=== PATIENT | female | born 1945 | race Caucasian/White ===

== ENCOUNTER 2025-01-27 21:38 | Inpatient (IN) | payer BC, OTHER ==
[~2025-01-27] VITALS: Ht 153.9 cm; Wt 72.2 kg
--- NOTE | 2025-01-27 21:53 | ECG ---
[facility] Test Date: 2025-01-27 Test Time: 21:41:42 Pat Name: DAIN GALLARDO Department: ED Room: 0231T Gender: F Twisting Operator: ronda : 1945 Requested By: SALLY ALMEIDA Order Number: [id number] Reading MD: Dima Santo Measurements Intervals Rover Rate: 89 P: 41 PA: 198 QRS: 43 QRSD: 92 T: 56 QT: 360 QTc: 439 Interpretive Statements Sinus rhythm Electronically Signed On 01-31-2025 15:03:17 PDT by Dima Santo Please click the below link to view image of tracing.
--- NOTE | 2025-01-27 22:00 | ED.PDOC ---
HPI (NEURO) HPI Comments 79 y/o F, with a history of AL, PTCA, HLD, and HTN, is [id number] relatives for c/c of AMS, with associated confusion, weakness, delayed speech, right sided facial droop, and headache. Patient is reported to have sudden, unprovoked, and atraumatic onset of symptoms between 1741-4329, this evening. Patient is reported to be A&Ox4 at baseline. No history of stroke in the past. Patient was also noted to have been found hypertensive at home at 190's systolically. No further acute symptoms reported. Chief Complaint: General Weakness Time Seen by MD: 21:45 Reviewed Notes: Nurses Notes, Medications, Allergies Information Source: Patient Mode of Arrival: Wheelchair Past Medical History PAST MEDICAL HISTORY: High Lipids, HTN, AL Surgical History: PTCA Social History Smoker: Non-Smoker Alcohol: Denies ETOH Use Drugs: Denies Drug Use Lives In: Home All Other Systems: Reviewed and Negative (Comprehensive systems review obtained and negative except for what is stated in the HPI.) Physical Exam General Appearance: No Apparent Distress, Normal, Other (elderly appearing ) HEENT: Normal ENT Inspection, Pharynx Normal, TMs Normal Neck: Full Range of Motion, Non-Tender, Normal, Normal Inspection Respiratory: Chest Non-Tender, Lungs Clear, No Accessory Muscle Use, No Respiratory Distress, Normal Breath Sounds Cardiovascular: No Edema, No JVD, No Murmur, No Gallop, Normal Peripheral Pulses, Regular Rate/Rhythm Breast Exam: Deferred Gastrointestinal: No Organomegaly, Non Tender, No Pulsatile Mass, Normal Bowel Sounds, Soft Genitalia: Deferred Pelvic: Deferred Rectal: Deferred Extremities: No calf tenderness, Normal capillary refill, Normal inspection, Normal range of motion, Non-tender, No pedal edema Musculoskeletal : Apperance: Normal Neurologic: Alert, quilt maker II-XII nml as Tested, No Motor Deficits, Normal Affect, Normal Mood, No Sensory Deficits Cerebellar Function: Normal Reflexes: Normal Skin: Dry, Normal Color, Warm Lymphatic: No Adenopathy EKG EKG : Pulse Rate (adult): 89 [place]: Normal Cardiac Rhythm: NSR Block: None Hypertrophy: None ST: Normal Was a procedure done? Was a procedure done?: No Differential Diagnosis (SZ) Seizure: N/A CVA: CVA, Drug Overdose, Electrolyte Imbalance, Encephalopathy, Hypoglycemia, Hypoxemia, TIA General Weakness: Anemia, CVA, Dehydration, Dysrhythmia, Electrolyte imbalance, Encephalopathy, Hypoglycemia, Myocardial infarction, Pulmonary embolus, TIA X-Ray, Labs, Meds, VS Vital Signs Date Time Temp Pulse Resp B/P (MAP) Pulse Ox O2 Delivery O2 Flow Rate FiO2 01/27/25 22:00 89 01/27/25 21:43 100.4 91 20 165/92 92 100.4 01/27/25 21:41 89 Lab Test 01/28/25 00:22 01/27/25 22:05 01/27/25 21:53 Range/Units Troponin I High Sensitivity Pending 5 </=34 ng/L White Blood Count 7.3 4.4-10.8 10^3/uL Red Blood Count 4.50 4.0-5.20 10^6/uL Hemoglobin 14.6 12.2-16.2 g/dL Hematocrit 41.6 36.0-46.0 % Mean Corpuscular Volume 92.6 80.0-100.0 fL Mean Corpuscular Hemoglobin 32.5 H 28.0-32.0 pg Mean Corpuscular Hemoglobin Concent 35.1 32.0-36.0 g/dL Red Cell Distribution Width 14.4 H 11.8-14.3 % Platelet Count 205 140-450 10^3/uL Mean Platelet Volume 6.8 L 6.9-10.8 fL Neutrophils (%) (Auto) 87.5 H 37.0-80.0 % Lymphocytes (%) (Auto) 5.6 L 10.0-50.0 % Monocytes (%) (Auto) 6.4 0.0-12.0 % Eosinophils (%) (Auto) 0.2 0.0-7.0 % Basophils (%) (Auto) 0.3 0.0-2.0 % Neutrophils # (Auto) 6.4 1.6-8.6 10 ^3/uL Lymphocytes # (Auto) 0.4 0.4-5.4 10 ^3/uL Monocytes # (Auto) 0.5 0-1.3 10 ^3/uL Eosinophils # (Auto) 0 0-0.8 10 ^3/uL Basophils # (Auto) 0 0-0.2 10 ^3/uL Nucleated Red Blood Cells 0.0 % Sodium Level 141 136-145 mmol/L Potassium Level 3.9 3.5-5.1 mmol/L Chloride Level 103 98-107 mmol/L Carbon Dioxide Level 29 20-31 mmol/L Anion Gap 9 5-15 Blood Urea Nitrogen 13 9-23 mg/dL Creatinine 0.96 0.550-1.02 mg/dL Glomerular Filtration Rate Calc 61 >90 mL/min BUN/Creatinine Ratio 13.5 10.0-20.0 Serum Glucose 123 H 74-106 mg/dL Lactic Acid Level 1.2 0.4-2.0 mmol/L Calcium Level 9.5 8.7-10.4 mg/dL Magnesium Level 2.2 1.6-2.6 mg/dL Total Bilirubin 0.7 0.2-1.0 mg/dL Aspartate Amino Transferase (AST) 17 13-40 U/L Alanine Aminotransferase (ALT) 17 7-40 U/L Alkaline Phosphatase 152 H 46-116 U/L Total Protein 8.0 5.7-8.2 g/dL Albumin 4.9 H 3.2-4.8 g/dL Urine Color Colorless Yellow Urine Clarity Turbid H Clear Urine pH 7.5 5.0-9.0 Urine Specific [place] 1.020 1.001-1.035 Urine Protein Trace H Negative Urine Ketones Trace Negative Urine Blood Negative Negative /uL Urine Nitrite Negative Negative Urine Bilirubin Negative Negative Urine Urobilinogen Normal Negative mg/dL Urine Leukocyte Esterase Negative Negative /uL Urine RBC <1 0 - 4 /hpf Urine Microscopic WBC < 1 0-5 /HPF Urine Squamous Epithelial Cells Few <5 /hpf Urine Amorphous Crystals Few None Seen /hpf Urine Bacteria None seen None Seen /hpf Urine Mucus Few None Seen Urine Glucose Normal Normal mg/dL [place] [address] Ph: [phone] DIAGNOSTIC IMAGING Diagnostic Imaging Report : [id number] Signed PATIENT: DAIN GALLARDO ACCT: [id number] UNIT: [id number] : 1945 LOC: ER ROOM / BED: / AGE / SEX: 79 / F ADM STATUS: REG ER SERVICE 45 ORDERING PHYSICIAN: SALLY ALMEIDA MD PROCEDURE(s): CXRP - CHEST PORTABLE REASON: SOB ORDER NUMBER(s): [id number], ACCESSION NUMBER(s): [id number] CHEST RADIOGRAPH Indication: SOB Technique: Single frontal view of the chest was obtained COMPARISON: None FINDINGS: Lines and Tubes: None Lungs: Mild subsegmental atelectasis at left lung base. Otherwise unremarkable. Pleura: No pleural effusion or pneumothorax. Cardiomediastinal contours: Unremarkable IMPRESSION: Mild subsegmental atelectasis at left lung base. Otherwise unremarkable study. ATED BY: DIPESH JC MD DICTATED DATE/TIME: 01/27/252306 SIGNED BY: DIPESH JC MD SIGNED DATE/TIME: 01/27/252306 CC: [place] [address] Ph: [phone] DIAGNOSTIC IMAGING Diagnostic Imaging Report : [id number] Signed PATIENT: DAIN GALLARDO ACCT: [id number] UNIT: [id number] : 1945 LOC: ER ROOM / BED: / AGE / SEX: 79 / F ADM STATUS: REG ER SERVICE 45 ORDERING PHYSICIAN: SALLY ALMEIDA MD PROCEDURE(s): HWOCT - HEAD WITHOUT CONTRAST REASON: ALOC ORDER NUMBER(s): [id number], ACCESSION NUMBER(s): [id number] CT BRAIN WITHOUT CONTRAST HISTORY: ALOC TECHNIQUE: Axial scans were obtained from the skull base through the vertex without contrast. Sagittal and coronal reformats were generated. One or more of the following radiation dose reduction techniques were used for this examination: automated exposure control, adjustment of the mA and/or kV according to patient size, use of iterative reconstruction technique. COMPARISON: None FINDINGS: Motion artifact limits evaluation. As visualized, no definite acute intracranial hemorrhage or evidence of large vessel territorial infarction is identified at this time. Chronic appearing bilateral lacunar infarcts are noted. No midline shift. The basilar cisterns are patent. Patchy left ethmoidal sinus mucosal thickening. The mastoid air cells are cl ear. No definite calvarial fracture identified given the degree of motion. IMPRESSION: Motion limited evaluation. No definite acute intracranial findings as visualized. Chronic appearing bilateral basal ganglia lacunar infarcts. If there is persistent clinical concern, short-term interval follow-up CT or MRI may be obtained to further evaluate. ATED BY: JOSE DE LA CRUZ MD DICTATED DATE/TIME: 01/27/252304 SIGNED BY: JOSE DE LA CRUZ MD SIGNED DATE/TIME: 01/27/252304 CC: Time of 1ST Reevaluation: 22:15 Reevaluation 1ST: Unchanged Patient Education/Counseling: Other (patient is altered ) Family Education/Counseling: Diagnosis, Treatment Departure 1 Departure Time of Disposition: 00:49 Impression: Primary Impression: Metabolic encephalopathy Disposition: ADMITTED INPATIENT Admit to: Med Surg Condition: Guarded Discharged With: Self Comments 79-year-old female with fairly acute onset confusion and some mumbling speech. CT of the head shows no acute pathology. Lab work reviewed and does not show any major red flags. Possible TIA. Possible dehydration or infectious process. Plan will be to admit the patient for supportive care and further workup, possible MRI tomorrow Critical Care Note Critical Care Time?: Yes (35 min-critical care time only) Critical care comment: Total critical care time: Approximately 36 minutes Due to a high probability of clinically significant, life threatening deterioration, the patient required my highest level of preparedness to intervene emergently and I personally spent this critical care time directly and personally managing the patient. This critical care time included obtaining a history; examining the patient; pulse oximetry; ordering and review of studies; arranging urgent treatment with development of a management plan; evaluation of patient's response to treatment; frequent reassessment; and, discussions with other providers. This critical care time was performed to assess and manage the high probability of imminent, life-threatening deterioration that could result in multi-organ failure. It was exclusive of separately billable procedures and treating other patients. Stability Stability form required: No Heart Score Heart Score: Heart Score Response (Comments) Value History N/A 0 EKG N/A 0 Age N/A 0 Risk Factors N/A 0 Troponin N/A 0 Total 0 I personally scribed for SALLY ALMEIDA MD ([email or web address]) on 01/27/25 at 22:00. Electronically submitted by Malcolm Jackson ([email or web address]). I personally scribed for SALLY ALMEIDA MD ([email or web address]) on 01/27/25 at 23:36. Electronically submitted by Malcolm Jackson ([email or web address]). SALLY ALMEIDA MD Jan 27, 2025 22:00
[2025-01-27 22:11] LABS: Urine Amorphous Crystal FEW /hpf (None Seen); Urine Protein, UAD TRACE (Negative)
[2025-01-27 22:20] LABS: Hematocrit 41.6 % (36.0-46.0); Hemoglobin 14.6 g/dL (12.2-16.2); Mean Corpuscular Hemoglobin 32.5 pg (28.0-32.0); Mean Corpuscular Volume 92.6 fL (80.0-100.0); Nucleated Red Blood Cells % 0.0 %
[2025-01-27 22:38] LABS: Alanine Aminotransferase 17 U/L (7-40); Anion Gap 9 (5-15); BUN/Creatinine Ratio 13.5 (10.0-20.0); Bilirubin, Total 0.7 mg/dL (0.2-1.0); Blood Urea Nitrogen 13 mg/dL (9-23); Calcium 9.5 mg/dL (8.7-10.4); Carbon Dioxide 29 mmol/L (20-31); Chloride 103 mmol/L (98-107); Magnesium 2.2 mg/dL (1.6-2.6); Potassium 3.9 mmol/L (3.5-5.1); Sodium 141 mmol/L (136-145); Total Protein 8.0 g/dL (5.7-8.2)
[2025-01-27 22:44] LABS: Albumin 4.9 g/dL (3.2-4.8); Alkaline Phosphatase 152 U/L (46-116); Glucose 123 mg/dL (74-106)
--- NOTE | 2025-01-27 23:08 | DVH ---
CT BRAIN WITHOUT CONTRAST HISTORY: ALOC TECHNIQUE: Axial scans were obtained from the skull base through the vertex without contrast. Sagitta l and coronal reformats were generated. One or more of the following radiation dose reduction techniq ues were used for this examination: automated exposure control, adjustment of the mA and/or kV accord ing to patient size, use of iterative reconstruction technique. COMPARISON: None FINDINGS: Motion artifact limits evaluation. As visualized, no definite acute intracranial hemorrhage or evidence of large vessel territorial infa rction is identified at this time. Chronic appearing bilateral lacunar infarcts are noted. No midline shift. The basilar cisterns are patent. Patchy left ethmoidal sinus mucosal thickening. The mastoid air cells are clear. No definite calvari al fracture identified given the degree of motion. IMPRESSION: Motion limited evaluation. No definite acute intracranial findings as visualized. Chronic appearing bilateral basal ganglia lacunar infarcts. If there is persistent clinical concern, short-term interval follow-up CT or MRI may be obtained to f chivo evaluate.
--- NOTE | 2025-01-27 23:09 | DVH ---
CHEST RADIOGRAPH Indication: SOB Technique: Single frontal view of the chest was obtained COMPARISON: None FINDINGS: Lines and Tubes: None Lungs: Mild subsegmental atelectasis at left lung base. Otherwise unremarkable. Pleura: No pleural effusion or pneumothorax. Cardiomediastinal contours: Unremarkable IMPRESSION: Mild subsegmental atelectasis at left lung base. Otherwise unremarkable study.
[2025-01-28] MEDS: SODIUM CHLORIDE 0.9% 500 ML IV ONE (02:15)
[2025-01-28] MEDS: IOHEXOL 350 MG/ML 100ML IJ ONE (02:21)
--- NOTE | 2025-01-28 03:04 | DVH ---
INDICATION: ALOC , slurred speech COMPARISON: CT HEAD WITHOUT CONTRAST on DOS: 01/27/25 TECHNIQUE: CTA head without and with intravenous contrast. CTA neck with intravenous contrast. 3D image postprocessing was performed on a dedicated workstation and images were used for interpretation and reporting. Radiation Dose Information: CT Dose: CTDI volume is 22.3 mGy. Dose-length product is 749.56 mGy*cm FINDINGS: CT head: There is no evidence of acute intracranial hemorrhage, extra-axial collection, mass effect, midline s hift, herniation or hydrocephalus. The ventricles, sulci and cisterns are age appropriate. The crawford -white differentiation is intact. Left ethmoid mucosal sinus disease. The remaining visualized paran daisy sinuses and mastoid air cells are clear. The surrounding soft tissues and osseous structures a re unremarkable. CTA head: There is normal enhancement of the visualized distal internal carotid, anterior and middle cerebral a rteries. Atherosclerotic vascular calcifications of the cavernous portions of the bilateral internal carotid arteries without evidence of associated hemodynamically significant stenosis. There is a norm al anterior communicating artery complex. There are bilateral posterior communicating arteries. The vertebral, basilar, cerebellar and posterior cerebral arteries are within normal limits. The early parenchymal enhancement is grossly unremarkable. The visualized intracranial venous structures are g rossly unremarkable. CTA neck: The visualized thoracic aortic arch and proximal great vessels are unremarkable. Atherosclerotic vasc ular calcifications are noted. The left common, internal and external carotid arteries are within normal limits. The right common, internal and external carotid arteries are within normal limits. Atherosclerotic vascular calcifications are present within the bilateral carotid bulbs without eviden ce of resultant hemodynamically significant stenosis. The cervical segments of the right and left vertebral arteries are within normal limits. The limited visualized lung apices are clear. The surrounding soft tissues and osseous structures ar e otherwise unremarkable. IMPRESSION: 1. No evidence of acute intracranial hemorrhage, mass effect or hydrocephalus. 2. No evidence of hemodynamically significant intracranial stenosis, proximal occlusion or aneurysm. 3. No evidence of hemodynamically significant cervical stenosis or dissection. 4. Atherosclerotic vascular disease. All CT scans at this medical facility are performed using dose modulation techniques as appropriate t o a performed exam including the following: Automated exposure control was utilized; adjustment of th e MA and/or KV according to patient size; and use of iterative reconstruction technique.
[2025-01-28] MEDS: GABAPENTIN 100 MG CAP PO ONE (03:09)
[2025-01-28] MEDS: carBAMazepine 200 MG TAB PO ONE (03:09)
[2025-01-28] MEDS: ATORVASTATIN 20 MG TAB PO ONE (03:10)
[2025-01-28] MEDS: LISINOPRIL 20 MG TAB PO ONE (03:10)
[2025-01-28] MEDS ORDERED: NITROGLYCERIN 0.4 MG SL TAB SL PRN (04:45)
[2025-01-28] MEDS ORDERED: DOCUSATE SOD 100 MG CAP PO PRN (04:45)
[2025-01-28] MEDS ORDERED: MORPHINE SULFATE INJ 2 MG/ml SYRG IV PRN (04:45)
[2025-01-28] MEDS ORDERED: ONDANSETRON HCL 4 MG/2 ML VIAL IV PRN (04:45)
[2025-01-28] MEDS ORDERED: hydrALAZINE HCL 20 MG/ML VL IV PRN (04:45)
--- NOTE | 2025-01-28 05:16 | DVHHP2 ---
LINDSAY LORENZO VOCAL TEACHER 01/28/25 0516: History of Present Illness Reason for Visit: AMS, slurred speech History of Present Illness 79-year-old female with past medical history of AK, PTCA, HLD, hypertension brought in by daughter with complaints of headache, confusion, generalized weakness, delayed speech, right-sided facial droop x1 day. Patient's daughter states symptoms started earlier when the patient was at [employer]aoism and was having difficulty standing up. Progressively worsened over the day. Patient was also noted to be hypertensive while at home. At her baseline patient is able to ambulate independently and speak clearly with no previous history of strokes. states that she sees neurologist Dr. 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 Patient was previously on Plavix for cardiac stent that was placed a year ago. Patient has stopped taking Plavix in October. During the emergency department evaluation CBC is unremarkable. CMP is unremarkable. UA is negative. CXR impression reads mild subsegmental atelectasis at the left lung base. Otherwise unremarkable study. Head CT without contrast impression reads motion limited evaluation. No definite acute intracranial findings as visualized. Chronic appearing bilateral basal ganglia lacunar infarcts. CT angio of the head and neck impression reads no evidence of acute intracranial hemorrhage, mass effect or hydrocephalus. No evidence of hemodynamically significant intracranial stenosis, proximal occlusion or aneurysm. No evidence of hemodynamically significant cervical stenosis or dissection. Atherosclerotic vascular disease. While in the emergency department patient is noted to to have low-grade temperature is 100.4. 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: Migraine Endocrine: Hypothyroidism Smoke: No ALCOHOL: none Drugs: None Lives: with Family Review of Systems Constitutional: Yes: Weakness, Malaise; No: Fever, Chills, Sweats, Other Eyes: No: Pain, Vision change, Conjunctivae inflammation, Eyelid inflammation, Other, Redness ENT: No: Ear pain, Ear discharge, Nose pain, Nose discharge, Nose congestion, Mouth pain, Mouth swelling, Throat pain, Throat swelling, Other Respiratory: No: Cough, Dry, Shortness of breath, SOB with excertion, Wheezing, Hemoptysis, Pleuritic Pain, Sputum, Wheezing, Other Cardiovascular: No: Chest Pain, Palpitations, Orthopnea, Paroxysmal Noc. Dyspnea, Edema, Lt Headedness, Other Gastrointestinal: No: Nausea, Vomiting, Abdominal Pain, Diarrhea, Constipation, Melena, Hematochezia, Other Genitourinary: No Dysuria, No Frequency, No Incontinence, No Hematuria, No Retention, No Other Musculoskeletal: No: other, neck pain, shoulder pain, arm pain, back pain, hand pain, leg pain, foot pain Skin: No: Rash, Lesions, Jaundice, Bruising, Other Neurological: Confusion, Other (Headaches) Allergies: Coded Allergies: NO KNOWN ALLERGIES (Unverified , 01/27/25) Medications Current Medications Medications Dose Ordered Sig/Jose Juan Route Start Time Stop Time Status Last Admin Dose Admin Docusate Sodium 100 mg BIDPRN PRN PO 01/28/25 04:45 UNV Acetaminophen 650 mg Q6HP PRN PO 01/28/25 04:45 UNV Ondansetron HCl 4 mg Q4HP PRN IV 01/28/25 04:45 UNV Enoxaparin Sodium 40 mg DAILY SC 01/28/25 10:00 UNV Nitroglycerin 0.4 mg Q5MINP PRN SL 01/28/25 04:45 UNV Morphine Sulfate 2 mg Q30M PRN IV 01/28/25 04:45 UNV Carbamazepine 200 mg BID PO 01/28/25 10:00 UNV Gabapentin 300 mg TID PO 01/28/25 06:00 UNV Aspirin 81 mg DAILY PO 01/28/25 10:00 UNV Atorvastatin Calcium 40 mg QPM PO 01/28/25 18:00 UNV Hydralazine HCl 10 mg Q4HPRN PRN IV 01/28/25 04:45 UNV Lisinopril 30 mg DAILY PO 01/28/25 10:00 UNV Levothyroxine Sodium 100 mcg DAILY PO 01/28/25 10:00 UNV Exam Vital Signs Vital Signs Date Time Temp Pulse Resp B/P (MAP) Pulse Ox O2 Delivery O2 Flow Rate FiO2 01/28/25 03:10 160/96 01/28/25 02:59 99.6 77 20 93 99.6 General Appearance: Alert, Oriented X3, mild distress HEENT: Atraumatic, PERRLA, EOMI Respiratory: Clear to auscultation, Normal air movement Cardiovascular: Regular rate, Normal S1, Normal S2 Abdominal: Normal bowel sounds, Soft, No tenderness Extremities: No clubbing, No cyanosis, No edema Skin: No breakdown Neuro: Other (Delayed speech with dysarthria. Bilateral upper and lower extremities equal strength) Psych/Mental Status: Mental status NL, Mood NL Labs/Xrays Labs Test 01/28/25 00:25 01/28/25 00:22 01/27/25 22:05 01/27/25 21:53 Range/Units Troponin I High Sensitivity 4 </=34 ng/L White Blood Count 7.3 4.4-10.8 10^3/uL Red Blood Count 4.50 4.0-5.20 10^6/uL Hemoglobin 14.6 12.2-16.2 g/dL Hematocrit 41.6 36.0-46.0 % Mean Corpuscular Volume 92.6 80.0-100.0 fL Mean Corpuscular Hemoglobin 32.5 H 28.0-32.0 pg Mean Corpuscular Hemoglobin Concent 35.1 32.0-36.0 g/dL Red Cell Distribution Width 14.4 H 11.8-14.3 % Platelet Count 205 140-450 10^3/uL Mean Platelet Volume 6.8 L 6.9-10.8 fL Neutrophils (%) (Auto) 87.5 H 37.0-80.0 % Lymphocytes (%) (Auto) 5.6 L 10.0-50.0 % Monocytes (%) (Auto) 6.4 0.0-12.0 % Eosinophils (%) (Auto) 0.2 0.0-7.0 % Basophils (%) (Auto) 0.3 0.0-2.0 % Neutrophils # (Auto) 6.4 1.6-8.6 10 ^3/uL Lymphocytes # (Auto) 0.4 0.4-5.4 10 ^3/uL Monocytes # (Auto) 0.5 0-1.3 10 ^3/uL Eosinophils # (Auto) 0 0-0.8 10 ^3/uL Basophils # (Auto) 0 0-0.2 10 ^3/uL Nucleated Red Blood Cells 0.0 % Sodium Level 141 136-145 mmol/L Potassium Level 3.9 3.5-5.1 mmol/L Chloride Level 103 98-107 mmol/L Carbon Dioxide Level 29 20-31 mmol/L Anion Gap 9 5-15 Blood Urea Nitrogen 13 9-23 mg/dL Creatinine 0.96 0.550-1.02 mg/dL Glomerular Filtration Rate Calc 61 >90 mL/min BUN/Creatinine Ratio 13.5 10.0-20.0 Serum Glucose 123 H 74-106 mg/dL Lactic Acid Level 1.2 0.4-2.0 mmol/L Calcium Level 9.5 8.7-10.4 mg/dL Magnesium Level 2.2 1.6-2.6 mg/dL Total Bilirubin 0.7 0.2-1.0 mg/dL Aspartate Amino Transferase (AST) 17 13-40 U/L Alanine Aminotransferase (ALT) 17 7-40 U/L Alkaline Phosphatase 152 H 46-116 U/L Total Protein 8.0 5.7-8.2 g/dL Albumin 4.9 H 3.2-4.8 g/dL Urine Color Colorless Yellow Urine Clarity Turbid H Clear Urine pH 7.5 5.0-9.0 Urine Specific [place] 1.020 1.001-1.035 Urine Protein Trace H Negative Urine Ketones Trace Negative Urine Blood Negative Negative /uL Urine Nitrite Negative Negative Urine Bilirubin Negative Negative Urine Urobilinogen Normal Negative mg/dL Urine Leukocyte Esterase Negative Negative /uL Urine RBC <1 0 - 4 /hpf Urine Microscopic WBC < 1 0-5 /HPF Urine Squamous Epithelial Cells Few <5 /hpf Urine Amorphous Crystals Few None Seen /hpf Urine Bacteria None seen None Seen /hpf Urine Mucus Few None Seen Urine Glucose Normal Normal mg/dL SEPSIS Sepsis Screen Date sepsis recognized/suspect: Jan 27, 2025 Time Sepsis recognized/suspect: 2140 Recent Procedure: No On Antibiotic Therapy: No Respiratory Rate >20: No Heart Rate >90: No Temp<36 C (96.8 F) or >38.3 C: No SBP <90 or MAP <65 mmHG: No New Acute Mental Status Change: No Is the patient on CPAP, BIPAP,: No Physician Orders Blood Culture (01/27/25 21:46) Chest Portable (01/27/25 21:46) Head Without Contrast (01/27/25 21:46) Straightcath If Unable To Void (01/27/25 21:49) Angio Head/Neck (01/28/25 02:11) Admit (01/28/25 04:45) Code Status (01/28/25 04:45) Vital Signs .PER UNIT PROTOCOL (01/28/25 04:45) Review Orders With Adm.Md (01/28/25 04:45) Encourage Activity As Tolerate (01/28/25 04:45) Consistent Carb(Ccho)Diabetes (01/28/25 Breakfast) Oxygen By Face Mask (01/28/25 04:45) Docusate Sodium Capsule (Colace Capsule) (01/28/25 04:45) Acetaminophen Tablet (Tylenol Tablet) (01/28/25 04:45) Notify Md Of Changes From Base (01/28/25 04:45) Advance Directive (01/28/25 04:45) Echo 2d Mode Cardiac Dop (01/28/25 04:45) Basic Metabolic Panel (01/28/25 05:00) Basic Metabolic Panel (01/29/25 05:00) Basic Metabolic Panel (01/30/25 05:00) Basic Metabolic Panel (01/31/25 05:00) Basic Metabolic Panel (02/01/25 05:00) Complete Blood Count (01/28/25 05:00) Complete Blood Count (01/29/25 05:00) Complete Blood Count (01/30/25 05:00) Complete Blood Count (01/31/25 05:00) Complete Blood Count (02/01/25 05:00) Blood Culture (01/28/25 04:45) Patient Condition (01/28/25 04:45) Allergies (01/28/25 04:45) Ondansetron Hcl (Zofran) (01/28/25 04:45) Enoxaparin Sodium (Lovenox) (01/28/25 10:00) Sequential Compression Device (01/28/25 ) Nitroglycerin Sublingual (Ntrostat Subli (01/28/25 04:45) Morphine Sulfate Injection (01/28/25 04:45) Stat Ekg For Chest Pain (01/28/25 04:45) Notify Md Of Changes From Base (01/28/25 04:45) Quality Control Tech Raw Materials For 24 Hours (01/28/25 04:45) Emergency Dysrhythmia Protocol (01/28/25 04:45) Rhythm Strips Once Every Shift (01/28/25 04:45) Oxygen By Nasal Cannula (01/28/25 04:45) * Cardiology Consult (01/28/25 04:45) Brain Head Wo Contrast (01/28/25 04:45) * Neurology Consult (01/28/25 04:45) Sod Chl 0.45% (Sodium Chloride 0.45% Via (01/28/25 04:45) Carbamazepine Tablet (Tegretol Tablet) (01/28/25 10:00) Gabapentin Capsule (Neurontin Capsule) (01/28/25 06:00) Thyroid Stimulating Hormone (01/28/25 04:45) Free T4 (Free Thyroxine) (01/28/25 04:45) Aspirin Tablet (01/28/25 10:00) Atorvastatin (Lipitor) (01/28/25 18:00) Rapid Influenza A&B (01/28/25 04:45) Dvh Inhouse Covid19 (01/28/25 04:45) Pt Request For Service (01/28/25 04:45) Hydralazine Injection (Apresoline Inject (01/28/25 04:45) Lisinopril Tablet (Zestril Tablet) (01/28/25 10:00) Levothyroxine Tablet (Synthroid Tablet) (01/28/25 10:00) Vital Signs Date Time Temp Pulse Resp B/P (MAP) Pulse Ox O2 Delivery O2 Flow Rate FiO2 01/28/25 03:10 160/96 01/28/25 02:59 99.6 77 20 160/96 (117) 93 99.6 01/27/25 22:00 89 01/27/25 21:43 100.4 91 20 165/92 92 100.4 01/27/25 21:41 89 Laboratory Tests Test 01/27/25 22:05 Lactic Acid Level 1.2 mmol/L (0.4-2.0) White Blood Count 7.3 10^3/uL (4.4-10.8) Medications Medications Dose Ordered Sig/Jose Juan Route Start Time Stop Time Status Last Admin Dose Admin Aspirin 81 mg ONCE ONCE PO 01/28/25 01:00 01/28/25 01:01 DC 01/28/25 03:09 81 MG Atorvastatin Calcium 40 mg ONCE ONCE PO 01/28/25 02:45 01/28/25 02:46 DC 01/28/25 03:10 40 MG Carbamazepine 200 mg ONCE ONCE PO 01/28/25 02:45 01/28/25 02:46 DC 01/28/25 03:09 200 MG Gabapentin 200 mg ONCE ONCE PO 01/28/25 02:45 01/28/25 02:46 DC 01/28/25 03:09 200 MG Lisinopril 40 mg ONCE ONCE PO 01/28/25 02:45 01/28/25 02:46 DC 01/28/25 03:10 40 MG Sodium Chloride 500 ml @ 500 mls/hr Q1H ONCE IV 01/28/25 02:15 01/28/25 03:14 DC 01/28/25 02:15 500 MLS/HR Assessment/Plan Assessment/Plan CVA R/O Dysarthria Hypertension Hx trigeminal neuralgia Hx PCI w stent Plan Admit telemetry Consult neurology. MRI brain. ASA, Statin.. physical therapy evaluation.. Allow for permissive. hypertension. Cardiology consult. Echocardiogram. As needed antihypertensive for optimal BP management Blood cultures pending. Influenza A&B; CV 19 pending. Continue home medication GI ppx Pepcid / dvt ppx lovenox Plan discussed with: Patient, Daughter My Orders Orders - LINDSAY LORENZO NP Procedure Category Date Status Time Admit ADMIT 01/28/25 Transmitted 04:45 Code Status CODE 01/28/25 Transmitted 04:45 Vital Signs [facility] 01/28/25 In Process 04:45 Review Orders With [facility] 01/28/25 In Process Adm. 04:45 Encourage Activity As [facility] 01/28/25 In Process Tolerate 04:45 Consistent DIET 01/28/25 Transmitted Carb(Ccho)Diabetes Breakfast Oxygen By Face Mask RT 01/28/25 Transmitted 04:45 Docusate Sodium [facility] 01/28/25 Logged Capsule (Colace 04:45 Acetaminophen Tablet PHA 01/28/25 Logged (Tylenol Tablet) 04:45 Notify Of Changes [facility] 01/28/25 In Process From Base 04:45 Advance Directive [facility] 01/28/25 In Process 04:45 Echo 2d Mode Cardiac US 01/28/25 Logged DOP 04:45 Basic Metabolic Panel LAB 01/28/25 Logged 05:00 Basic Metabolic Panel LAB 01/29/25 Verified 05:00 Basic Metabolic Panel LAB 01/30/25 Verified 05:00 Basic Metabolic Panel LAB 01/31/25 Verified 05:00 Basic Metabolic Panel LAB 02/01/25 Verified 05:00 Complete Blood Count LAB 01/28/25 Logged 05:00 Complete Blood Count LAB 01/29/25 Verified 05:00 Complete Blood Count LAB 01/30/25 Verified 05:00 Complete Blood Count LAB 01/31/25 Verified 05:00 Complete Blood Count LAB 02/01/25 Verified 05:00 Blood Culture [facility] 01/28/25 Logged 04:45 Patient Condition ORDERS 01/28/25 Transmitted 04:45 Allergies [facility] 01/28/25 In Process 04:45 Ondansetron Hcl [facility] 01/28/25 Logged (Zofran) 04:45 Enoxaparin Sodium [facility] 01/28/25 Logged (Lovenox) 10:00 Sequential TOREY 01/28/25 In Process Compression Device Nitroglycerin [facility] 01/28/25 Logged Sublingual (Ntrostat 04:45 Morphine Sulfate [facility] 01/28/25 Logged Injection 04:45 Stat Ekg For Chest [facility] 01/28/25 In Process Pain 04:45 Notify Md Of Changes [facility] 01/28/25 In Process From Base 04:45 Quality Control Tech Raw Materials For [facility] 01/28/25 In Process 24 Hours 04:45 Emergency Dysrhythmia [facility] 01/28/25 In Process Protocol 04:45 Rhythm Strips Once [facility] 01/28/25 In Process Every Shift 04:45 Oxygen By Nasal RT 01/28/25 Transmitted Cannula 04:45 * Cardiology Consult CONS 01/28/25 Transmitted 04:45 Brain Head Wo Contrast MRI 01/28/25 Logged 04:45 * Neurology Consult CONS 01/28/25 Transmitted 04:45 Sod Chl 0.45% (Sodium PHA 01/28/25 Logged Chloride 0.45% Via 04:45 Carbamazepine Tablet [facility] 01/28/25 Logged (Tegretol Tablet) 10:00 Gabapentin Capsule [facility] 01/28/25 Logged (Neurontin Capsule) 06:00 Thyroid Stimulating LAB 01/28/25 In Process Hormone 04:45 Free T4 (Free LAB 01/28/25 Logged Thyroxine) 04:45 Aspirin Tablet [facility] 01/28/25 Logged 10:00 Atorvastatin (Lipitor) [facility] 01/28/25 Logged 18:00 Rapid Influenza A&B LAB 01/28/25 Logged 04:45 Dvh Inhouse Covid19 [facility] 01/28/25 Logged 04:45 Pt Request For Service PT 01/28/25 Logged 04:45 Hydralazine Injection [facility] 01/28/25 Logged (Apresoline Inject 04:45 Lisinopril Tablet [facility] 01/28/25 Logged (Zestril Tablet) 10:00 Levothyroxine Tablet [facility] 01/28/25 Logged (Synthroid Tablet) 10:00 Date of Service: Jan 28, 2025 Billing Provider: EDEL CALVERT MD Common Visit Codes: NOT BILLABLE EDEL CALVERT MD 01/28/25 1737: Review of Systems Allergies: Coded Allergies: NO KNOWN ALLERGIES (Unverified , 01/27/25) LINDSAY LORENZO NP Jan 28, 2025 05:16 EDEL CALVERT MD Jan 28, 2025 17:37
[2025-01-28 05:57] LABS: Hematocrit 40.4 % (36.0-46.0); Hemoglobin 14.0 g/dL (12.2-16.2); Mean Corpuscular Hemoglobin 32.2 pg (28.0-32.0); Mean Corpuscular Volume 93.3 fL (80.0-100.0); Nucleated Red Blood Cells % 0.2 %
[2025-01-28] MEDS: GABAPENTIN 300 MG CAP PO SCH (06:00)
[2025-01-28 06:15] VITALS: BP 156/66; PULSE 72; RESP 16; O2SAT 91
[2025-01-28 06:48] LABS: Chloride 103 mmol/L (98-107); Potassium 4.1 mmol/L (3.5-5.1); Sodium 141 mmol/L (136-145)
[2025-01-28 06:49] LABS: Anion Gap 14 (5-15); Calcium 9.5 mg/dL (8.7-10.4); Carbon Dioxide 24 mmol/L (20-31)
[2025-01-28 06:54] LABS: BUN/Creatinine Ratio 14.4 (10.0-20.0); Blood Urea Nitrogen 13 mg/dL (9-23)
[2025-01-28 06:57] LABS: Glucose 122 mg/dL (74-106)
--- NOTE | 2025-01-28 08:47 | DVH ---
PROCEDURE: MRI BRAIN HEAD WO CONTRAST Indication: cva COMPARISON: 01/27/2025 TECHNIQUE: Multiplanar multisequence images of the brain are obtained. FINDINGS: There is no abnormal diffusion restriction. There are moderate periventricular and subcortical white matter T2 and FLAIR hyperintense changes. Old bilateral basal ganglia lacunar infarcts There is no in tracranial hemorrhage. No extra-axial fluid collection, mass effect or midline shift. The ventricles are midline and normal in size. The cisterns are patent. Normal intracranial flow voids are preserved . No abnormal susceptibility signal. Mastoids well pneumatized. Mucosal thickening ethmoids The visualized orbits are unremarkable. IMPRESSION: No acute cerebrovascular ischemia. Moderate chronic microvascular ischemic changes. Paranasal sinus disease.
[2025-01-28 08:55] LABS: COVID19 ANTIGEN SOFIA FIA POSITIVE (NEGATIVE)
[2025-01-28 08:58] VITALS: PULSE 61; RESP 15; O2SAT 94
[2025-01-28] MEDS: FAMOTIDINE (10MG/ML) 2ML VL IV SCH (09:40)
[2025-01-28] MEDS: LEVOTHYROXINE SODIUM 100 MCG TAB PO SCH (09:40)
[2025-01-28] MEDS: carBAMazepine 200 MG TAB PO SCH (09:40)
[2025-01-28] MEDS: ACETAMINOPHEN 325 MG TAB PO PRN (09:41)
[2025-01-28] MEDS: ENOXAPARIN SOD 40 MG/0.4 ML SYRINGE SC SCH (09:41)
[2025-01-28] MEDS: SOD CHL 0.45% 1,000 ML IV ONE (09:42)
[2025-01-28] MEDS: LISINOPRIL 20 MG TAB PO SCH (09:42)
[2025-01-28] MEDS: ATORVASTATIN 20 MG TAB PO SCH (17:03)
--- NOTE | 2025-01-28 18:52 | DVHSR ---
APPROVED REPORT EXAM: Two-dimensional and M-mode echocardiogram with Doppler and color Doppler. Blood Pressure: 159/76 mmHg INDICATION CVA/TIA: RISK FACTORS Height: 5'7", Weight: 159 DIMENSIONS LVDd4.9 (3.8-5.7cm)LA (2D)4.6 (1.9-4.0cm)Aortic Root3.0 (2.0-3.7cm) LVDs2.6 (2.5-4.0cm)LA (MM) (1.9-4.0cm)Aortic Cusp Exc2.1 (1.5-2.0cm) EF (%) 76.0 (55-70%)Rt. Atrium4.1 (1.9-4.0cm)Asc. Aorta cm IVSd1.2 (0.7-1.1cm)RV (D) (1.8-2.4cm) Mitral Valve MitralMitral Stenosis E wave0.73m/sMV Mean GR.mmHg A wave1.01m/sMV Peak GR.mmHg E/A ratio0.72D MVAcm2 DECEL [id number] 1/2 Timems Aortic Valve Aortic ValveAortic Stenosis V11.35m/[place] Mean GR.5mmHg V21.42m/[place] Peak GR.8mmHg LVOT Diameter2.2 (1.8-2.4cm)Doppler AVA3.61cm2 Pulmonic Valve V20.96m/s Tricuspid Valve TR Velocity2.47m/s [id number] Other Information Quality : Technically LimitedRhythm : Technically limited study due to body habitus. Conclusion Technically good study. Sinus rhythm. Difficult acoustic windows. Concentric LVH with biatrial enlargement. LV outflow tract enlargement. Mild aortic annular calcification. There was good excursion of the aortic leaflets. The pulmonic an d tricuspid appear to be structurally normal. Mild mitral annular calcification. Left ventricular systolic performance is preserved EF is 60% with normal RV function. Doppler reveals mild tricuspid regurgitation. There is impaired diastolic relaxation noted on inflow patterns. Small pericardial effusion not hemodynamically significant. No intracardiac masses thrombi or vegetations discernible.
[2025-01-28 20:01] VITALS: PULSE 83; RESP 15; O2SAT 93
[2025-01-29 06:52] LABS: Hematocrit 36.9 % (36.0-46.0); Hemoglobin 13.1 g/dL (12.2-16.2); Mean Corpuscular Hemoglobin 32.7 pg (28.0-32.0); Mean Corpuscular Volume 92.3 fL (80.0-100.0); Nucleated Red Blood Cells % 0.1 %
[2025-01-29 07:02] LABS: Anion Gap 9 (5-15); Carbon Dioxide 26 mmol/L (20-31); Chloride 103 mmol/L (98-107); Potassium 3.5 mmol/L (3.5-5.1); Sodium 138 mmol/L (136-145)
[2025-01-29 07:03] LABS: Calcium 8.8 mg/dL (8.7-10.4)
[2025-01-29 07:08] LABS: BUN/Creatinine Ratio 16.7 (10.0-20.0); Blood Urea Nitrogen 12 mg/dL (9-23); Glucose 104 mg/dL (74-106)
[2025-01-29 07:20] VITALS: PULSE 78; RESP 14; O2SAT 96
[2025-01-29 17:15] VITALS: BP 155/83; PULSE 80; RESP 12; TEMP 98.3; O2SAT 94
--- NOTE | 2025-01-29 18:09 | DVHDS2 ---
Discharge Summary Date of Admission Jan 28, 2025 at 04:45 Date of Discharge: Jan 29, 2025 Labs/Diagnostic Data: Laboratory Results Test 01/29/25 06:30 01/28/25 05:50 01/28/25 05:22 01/28/25 00:25 White Blood Count 5.2 10^3/uL (4.4-10.8) Red Blood Count 4.00 10^6/uL (4.0-5.20) Hemoglobin 13.1 g/dL (12.2-16.2) Hematocrit 36.9 % (36.0-46.0) Mean Corpuscular Volume 92.3 fL (80.0-100.0) Mean Corpuscular Hemoglobin 32.7 pg (28.0-32.0) Mean Corpuscular Hemoglobin Concent 35.5 g/dL (32.0-36.0) Red Cell Distribution Width 14.4 % (11.8-14.3) Platelet Count 174 10^3/uL (140-450) Mean Platelet Volume 7.0 fL (6.9-10.8) Neutrophils (%) (Auto) 78.8 % (37.0-80.0) Lymphocytes (%) (Auto) 9.5 % (10.0-50.0) Monocytes (%) (Auto) 11.3 % (0.0-12.0) Eosinophils (%) (Auto) 0.1 % (0.0-7.0) Basophils (%) (Auto) 0.3 % (0.0-2.0) Neutrophils # (Auto) 4.1 10 ^3/uL (1.6-8.6) Lymphocytes # (Auto) 0.5 10 ^3/uL (0.4-5.4) Monocytes # (Auto) 0.6 10 ^3/uL (0-1.3) Eosinophils # (Auto) 0 10 ^3/uL (0-0.8) Basophils # (Auto) 0 10 ^3/uL (0-0.2) Nucleated Red Blood Cells 0.1 % Sodium Level 138 mmol/L (136-145) Potassium Level 3.5 mmol/L (3.5-5.1) Chloride Level 103 mmol/L (98-107) Carbon Dioxide Level 26 mmol/L (20-31) Anion Gap 9 (5-15) Blood Urea Nitrogen 12 mg/dL (9-23) Creatinine 0.72 mg/dL (0.550-1.02) Glomerular Filtration Rate Calc 86 mL/min (>90) BUN/Creatinine Ratio 16.7 (10.0-20.0) Serum Glucose 104 mg/dL (74-106) Calcium Level 8.8 mg/dL (8.7-10.4) Influenza Type A Antigen Negative (Negative) Influenza Type B Antigen Negative (Negative) SARS-CoV-2 Antigen (Rapid) Positive (NEGATIVE) Free Thyroxine (T4) Calculated 1.21 ng/dL (0.89-1.76) Thyroid Stimulating Hormone (TSH) 0.87 uIU/mL (0.55-4.78) Test 01/28/25 00:22 01/27/25 22:05 01/27/25 21:53 Troponin I High Sensitivity 4 ng/L (</=34) Lactic Acid Level 1.2 mmol/L (0.4-2.0) Magnesium Level 2.2 mg/dL (1.6-2.6) Total Bilirubin 0.7 mg/dL (0.2-1.0) Aspartate Amino Transferase (AST) 17 U/L (13-40) Alanine Aminotransferase (ALT) 17 U/L (7-40) Alkaline Phosphatase 152 U/L (46-116) Total Protein 8.0 g/dL (5.7-8.2) Albumin 4.9 g/dL (3.2-4.8) Urine Color Colorless (Yellow) Urine Clarity Turbid (Clear) Urine pH 7.5 (5.0-9.0) Urine Specific [place] 1.020 (1.001-1.035) Urine Protein Trace (Negative) Urine Ketones Trace (Negative) Urine Blood Negative /uL (Negative) Urine Nitrite Negative (Negative) Urine Bilirubin Negative (Negative) Urine Urobilinogen Normal mg/dL (Negative) Urine Leukocyte Esterase Negative /uL (Negative) Urine RBC <1 /hpf (0 - 4) Urine Microscopic WBC < 1 /HPF (0-5) Urine Squamous Epithelial Cells Few /hpf (<5) Urine Amorphous Crystals Few /hpf (None Seen) Urine Bacteria None seen /hpf (None Seen) Urine Mucus Few (None Seen) Urine Glucose Normal mg/dL (Normal) Other Laboratory Tests 9/2/25 06:30 Brief Hx & Hospital Course: 79-year-old female with a known history of CAD status post PCI, hypertension, dyslipidemia initially presented to the hospital with generalized weakness and slurred speech eventually patient was admitted CT head was negative for DVT CT head and neck shows no large vessel occlusion. MRI brain shows no evidence of any acute infarct. Patient was found to have COVID-19 viral pneumonia but asymptomatic on room air. Patient and patient's daughter requested to go home I think patient is stable to be discharged. Please follow up with the PCP upon discharge. COVID-19 isolation for next 7-10 days. Condition at Discharge: Stable Final Diagnosis/Problems List 1. Generalized weakness with slurred speech ruled out acute CVA 2. Coronary artery disease status post PCI 3. Hypertension 4. Dyslipidemia 5. Acute viral pneumonia with a positive COVID-19 currently asymptomatic and on room air Discharge Disposition: Home SNF Discharge Will this Physician continue t: No Discharge Instruct/Medications Diet: Cardiac 2g Na,low cholest Activity: [id number] Follow Up/Referral: Follow up with the PCP in 1-2 weeks. Medications: Resume home medications. Discharge Statement: "Patient was advised to return to the ER or call 911 if any headaches, dizziness, shortness of breath, chest pain, abdominal pain, bleeding, fevers, or worsening of medical condition. Patient was counseled about treatment plan, medications, possible side effects, patientverbalized understanding. All questions were answered to the best of my ability. This discharge took greater then 30 minutes in planning, reviewing documentation, counseling the patient, and discussing with other team members." ASSESSMENT ASSESSMENT Assessment 1. Generalized weakness with slurred speech ruled out acute CVA 2. Coronary artery disease status post PCI 3. Hypertension 4. Dyslipidemia 5. Acute viral pneumonia with a positive COVID-19 currently asymptomatic and on room air Date of Service: Jan 29, 2025 Billing Provider: EDEL CALVERT MD Common Visit Codes: NOT BILLABLE EDEL CALVERT MD Jan 29, 2025 18:09
[2025-01-29 18:10] VITALS: PULSE 82; RESP 16; O2SAT 94
[2025-01-29] MEDS ORDERED: ATOR-507 PO (18:39)
[2025-01-29] MEDS ORDERED: LISI40TA16 PO (18:39)
[2025-01-29] MEDS ORDERED: ASPI-498 OR (18:39)
[2025-01-29] MEDS ORDERED: GABA-339 PO (18:39)
[2025-01-29] MEDS ORDERED: CARB200T PO (18:39)
[2025-01-29] MEDS ORDERED: GABA-1250 PO (18:39)
[2025-01-29] MEDS ORDERED: LEVO100T8 PO (18:39)
[2025-01-29 19:59] VITALS: BP 155/83; PULSE 82; RESP 16; TEMP 98.3; O2SAT 95
== END 2025-01-29 22:01 | disposition home or self-care (01) | DRG 177 ==
LOC: ER 21:38 → OVERFLOW 01-28 04:45 → TELE-EAST 01-29 17:58
PROVIDERS: ADMIT Nurse Practitioner Family; ATTEND Nurse Practitioner Family
DX: U07.1 COVID-19 (principal); G93.41 Metabolic encephalopathy; J12.82 Pneumonia due to coronavirus disease 2019; J98.11 Atelectasis; I10 Essential (primary) hypertension; E78.5 Hyperlipidemia, unspecified; I25.10 Atherosclerotic heart disease of native coronary artery without angina pectoris; E03.9 Hypothyroidism, unspecified; G43.909 Migraine, unspecified, not intractable, without status migrainosus; I25.2 Old myocardial infarction; Z95.5 Presence of coronary angioplasty implant and graft; Z78.9 Other specified health status
CPT/HCPCS: 36415; 70450; 70496; 70498; 70551; 71045; 80048; 80053; 81001; 83605; 83735; 84439; 84443; 84484; 85025; 87040; 87426; 87804; 93005; 93306; 97110; 97116; 97163; 97530; 99291; G0378; J3490